=== PATIENT | male | born 1940 | race Caucasian/White ===

== ENCOUNTER 2021-09-10 14:48 | Outpatient (CLI) | payer MEDICARE, SELFPAY ==
--- NOTE | 2021-09-10 | ECHO_ITS ---
Patient Info Name: Ari Araiza Age: 80 years : 1940 Gender: Male Ht: 70 in Wt: 245 lbs BSA: 2.38 m2 HR: 70 bpm BP: 119 / 87 mmHg Heart Rhythm: Atrial Fibrillation Technical Quality: Fair Exam Date: 09/10/2021 3:26 PM Exam Location: [facility] Patient Status: Outpatient Admit Date: 09/10/2021 Staff Ordering Physician: JeraldDominic MD Canopy Stringer: Sara Dixon RDCS Attending Provider: Dea*Dominic MD Exam Type: CA echo dop color flow w con Study Info Indications - A-FIB Complete two-dimensional, color flow and Doppler transthoracic echocardiogram is performed with contrast to opacify the left ventricle and to improve the deliniation of the left ventricle endocardial borders. Contrast/Agitated Saline Contrast/Ag. Saline: Definity Amount: 3.00 ml Administered By: Sara Dixon RDCS Existing IV Access: Yes IV Access Condition: patent with no signs of infiltration New IV Access: Left Summary 1. Normal left ventricular size with mild concentric hypertrophy as well as sigmoid hypertrophy. Good systolic function of all segments with ejection fraction 63%. Diastolic dysfunction is present. No evidence of left ventricular outflow tract obstruction. 2. Left atrial chamber dimension is moderately enlarged. 3. There is mild tricuspid valve regurgitation. 4. No pulmonary hypertension, estimated pulmonary arterial systolic pressure is 34 mmHg. 5. Atrial fibrillation. Left Ventricle Left ventricular chamber dimension is normal. Left ventricular systolic function is normal, estimated at 60-65%. There is mildly increased left ventricular wall thickness. Left ventricular septal wall motion is normal. The left ventricular diastolic function is abnormal. Right Ventricle Right ventricular chamber dimension is normal. Right ventricular systolic function is normal. Left Atria Left atrial chamber dimension is moderately enlarged. Right Atria Right atrial chamber dimension is normal. Aortic Valve The aortic valve is trileaflet. There is mild aortic valve sclerosis. There is no aortic valve stenosis. There is no aortic valve regurgitation. Pulmonic Valve The pulmonic valve is normal. There is no pulmonic valve stenosis. There is no pulmonic regurgitation. Mitral Valve The mitral valve has normal leaflets. There is no mitral valve stenosis. There is trace mitral valve regurgitation. Tricuspid Valve The tricuspid valve leaflets are normal. There is no significant tricuspid valve stenosis. There is mild tricuspid valve regurgitation. No pulmonary hypertension, estimated pulmonary arterial systolic pressure is 34 mmHg. Pericardium/Pleural The pericardium appears normal. There is no pericardial effusion. Inferior Vena Cava Normal inferior vena cava with >50% collapse upon inspiration consistent with Empty right atrial pressure, 10 mmHg. Aorta The aortic root size at the sinus of Valsalva is normal. The prox ascending aorta size is normal. Left Ventricular Outflow Tract Name Value Normal LVOT 2D LVOT Diameter 2.02 cm LVOT Doppler
[2021-09-10] MEDS: PERFLUTREN LIPID MICROSPHERES 1.5 ML VIAL DILUTED TO 10 ML TOTAL VOLUME IV PUSH (14:45)
== END 2021-09-10 14:49 | disposition home or self-care (01) ==
LOC: ANHCARD 14:50
PROVIDERS: PCP Internal Medicine; Visit Provider Internal Medicine
DX: I48.91 Unspecified atrial fibrillation (principal)
CPT/HCPCS: C8929; Q9957

== ENCOUNTER 2024-07-26 08:05 | Outpatient (CLI) | payer MEDICARE, SELFPAY ==
--- OUTSIDE RECORDS SUMMARY | 2024-07-26 08:11 | XMS_ITS | Data Portability ---
Author Organization [place] [employer], Main Office Address [address] [place] [address] Assessment Encounter Date Assessment Date Assessment LastModified by Organization Details LastModified Time 08/05/2022 08/05/2022 Medications refilled diagnosis discussed blood work ordered targets for pressure A1c and LDL discussed follow-up in 6 months Not available 08/09/2022 15:57:29 02/10/2023 02/10/2023 Continue current therapy diagnosis discussed he will follow-up in 4-6 [email or web address] Not available 02/10/2023 22:59:06 Plan of Treatment Reminders Order Date Submit Date Provider Last Modified By Organization Details Last Modified Time Details Appointments None recorded. Lab PSA, total, serum or plasma 2022 023 [facility] (Lab), [address] [place], [address], 3 14:17:05 glycohemogl obin, total, blood 2022 023 [facility] (Lab), [address] [place], [address], 3 17:33:43 CBC w/ auto diff 2022 023 [facility] (Lab), [address] [place], [address], 3 13:52:23 lipid panel, serum 2022 023 [facility] (Lab), [address] [place], [address], 3 13:49:49 CMP, serum or plasma 2022 023 [facility] (Lab), [address] [place], [address], 3 13:49:54 glycohemogl obin, total, blood 2022 023 [facility] (Lab), [address] [place], [address], 3 14:28:34 albumin/cre atinine, mass ratio, urine 2022 023 [facility] (Lab), [address] [place], [address], 3 09:43:42 CBC w/ auto diff 2022 023 [facility] (Lab), [address] [place], [address], 3 13:10:25 lipid panel, serum 2022 023 [facility] (Lab), [address] [place], [address], 3 15:47:13 CMP, serum or plasma 2022 023 [facility] (Lab), [address] [place], [address], 3 15:47:15 Referral None recorded. Procedures None recorded. Surgeries None recorded. Imaging None recorded. Medication Orders simvastatin 40 mg tablet 2022 023 [facility] #[id number], [address], [id number], 3 15:46:02 Farxiga 10 mg tablet 2022 023 [facility] #64256, [address] [place] [address], [id number], 3 15:46:02 glipizide 5 mg tablet 2022 023 [id number] [facility] #36483, [address] [place] [address], [id number], 3 15:46:02 metoprolol tartrate 50 mg tablet 2022 023 [facility] #38013, [address] [place] [address], [id number], 3 15:46:02 Pradaxa 150 mg capsule 2022 023 [facility] #52173, [address] [place] [address], [id number], 3 15:46:02 valsartan 160 mg-hydrochl orothiazide 12.5 mg tablet 2022 023 [email or web address] [facility] #20678, [address] [place] [address], [id number], 3 15:46:02 Patient TargetsNo targets recorded. Patient InstructionsNo instructions recorded. Reason for Referral None Reported. Results Created Date Observation Date Name Description Value Unit Range Abnormal Flag Note LastModifiedBy Organization Detail LastModifiedTime 12/11/19 22 12/10/2021 HEMOG LOBIN A1C HA1C 6.2 % 4.0-6. 0 high Diabe beth Scree bev Crite woody: <5.7% Consi stent with absen ce of diabe beth 5.7-6 .4% Consi stent with incre ased risk for diabe beth (pred iabet es) >OR=6 .5% Consi stent with diabe beth REFER ENCE: Diabe beth Care 2016, 39(Castellano ppl.1 ):s13 -s22 Not Available [facility] (Lab) [address] [place], [address], 12/10/2021 21:30:05 12/11/19 22 12/10/2021 PSA SCREE N PSA medicare screen 3.45 NG/mL 0.00-4 .00 Not Available [facility] (Lab) [address] [place], [address], 12/10/2021 20:31:46 12/11/19 22 12/10/2021 LIPID PANEL cholesterol 162 mg/dL 140-19 9 [facility] L[facility] NSUS RECOM MENDA TION FOR THIAGO STERO L: ADULT CHILD LOW RISK: <200 <170 BORDE RLINE : <200- 239 ----- HIGH RISK: >240 >200 Not Available [facility] (Lab) [address] [place], [address], 12/10/2021 20:15:10 12/11/19 22 12/10/2021 LIPID PANEL triglyceride s 94 mg/dL 0-150 NIH LILIAN NSUS REPOR T RECOM MENDA TION FOR TRIGL YCERI PEG: ADULT CHILD LOW RISK: <150 ----- BODER LINE: 150-1 99 ----- HIGH RISK: >200 ----- Not Available [facility] (Lab) [address] [place], [address], 12/10/2021 20:15:10 12/11/19 22 12/10/2021 LIPID PANEL HDL cholesterol 65 mg/dL 40- Not Available [facility] (Lab) [address] [place], [address], 12/10/2021 20:15:10 12/11/19 22 12/10/2021 LIPID PANEL LDL cholesterol, calculated 78 mg/dL 0-130 NIH LILIAN NSUS REPOR T RECOM MENDA TIONS FOR LDL: ADULT CHILD LOW RISK <130 <110 (OPTI MAL LDL) <100 ----- BORDE RLINE : 130-1 59 ----- HIGH RISK: >160 >130 A TRIGL YCERI DE RESUL T >400 INVAL IDATE S THE CALCU LATIO N FOR LDL FRACT IONAT ION - THE LDL RESUL T WILL NOT BE REPOR TERRI. Not Available [facility] (Lab) [address] [place], [address], 12/10/2021 20:15:10 12/11/19 22 12/10/2021 COMPR EHENS DANIKA METAB OLIC PANEL sodium 135 mmol/ L 137-14 5 low Not Available [facility] (Lab) [address] [place], [address], 12/10/2021 20:15:05 12/11/19 22 12/10/2021 COMPR EHENS DANIKA METAB OLIC PANEL potassium 4.8 mmol/ L 3.5-5. 1 Not Available [facility] (Lab) [address] [place], [address], 12/10/2021 20:15:05 12/11/19 22 12/10/2021 COMPR EHENS DANIKA METAB OLIC PANEL chloride 103 mmol/ L 98-107 Not Available [facility] (Lab) [address] [place], [address], 12/10/2021 20:15:05 12/11/19 22 12/10/2021 COMPR EHENS DANIKA METAB OLIC PANEL carbon dioxide 22 mmol/ L 22-30 Not Available [facility] (Lab) [address] [place], [address], 12/10/2021 20:15:05 12/11/19 22 12/10/2021 COMPR EHENS DANIKA METAB OLIC PANEL anion gap 14.8 mmol/ L 14-22 Not Available [facility] (Lab) [address] [place], [address], 12/10/2021 20:15:05 12/11/19 22 12/10/2021 COMPR EHENS DANIKA METAB OLIC PANEL glucose 129 mg/dL 70-99 high Not Available [facility] (Lab) [address] [place], [address], 12/10/2021 20:15:05 12/11/19 22 12/10/2021 COMPR EHENS DANIKA METAB OLIC PANEL BUN 30 mg/dL 8-19 high Not Available [facility] (Lab) [address] [place], [address], 12/10/2021 20:15:05 12/11/19 22 12/10/2021 COMPR EHENS DANIKA METAB OLIC PANEL creatinine 1.32 mg/dL 0.66-1 .25 high Not Available [facility] (Lab[facility] [address] [facility] [place], [address], 12/10/2021 20:15:05 12/11/19 22 12/10/2021 COMPR EHENS DANIKA METAB OLIC PANEL GFR 52 Refer ence Range : [place] ge GFR Healt hy Adult : >60 mL/mi n/1.7 3 m2 Chron ic Kidne y Disea se: 15-60 mL/mi n/1.7 3 m2 Kidne y Failu re: <15/m L/min /1.73 m2 www.n iddk. nih.g ov The MDRD study equat ion has not been valid ated in child madisyn <18 years of age; pregn ant women ; the elder ly >85 years of age; or in some racia l or ethni c subgr oups, such as [facility] nics. Outsi de the valid ated baldo eters , estim ated GFR is less accur ate, requi ring clini jared judgm ent on a case- by-ca se basis . Clini jared inter preta tion for other races and ages must be made by the clini lisa. The MDRD study equat ion has not been valid ated for the evalu ation of serum creat inine relat ed to nutri amada l statu s or medic ation usage . For perso ns <18 years of age, a pedia tric GFR calcu lator is avail able on the [facility] websi te: https :[email or web address] [email or web address] rg/pr ofess ional s/kdo qi/gf r_cal culat or Not Available [facility] (Lab) [address] [place], [address], 12/10/2021 20:15:05 12/11/19 22 12/10/2021 COMPR EHENS DANIKA METAB OLIC PANEL alkaline phosphatase 63 U/L 38-126 Not Available [facility] (Lab) [address] [place], [address], 12/10/2021 20:15:05 12/11/19 22 12/10/2021 COMPR EHENS DANIKA METAB OLIC PANEL alanine aminotransfe rase 30 U/L 0-50 Not Available [facility] (Lab) [address] [place], [address], 12/10/2021 20:15:05 12/11/19 22 12/10/2021 COMPR EHENS DANIKA METAB OLIC PANEL aspartate aminotransfe rase 40 U/L 15-46 Not Available [facility] (Lab) [address] [place], [address], 12/10/2021 20:15:05 12/11/19 22 12/10/2021 COMPR EHENS DANIKA METAB OLIC PANEL bilirubin, total 1.30 mg/dL 0.20-1 .30 Not Available [facility] (Lab) [address] [place], [address], 12/10/2021 20:15:05 12/11/19 22 12/10/2021 COMPR EHENS DANIKA METAB OLIC PANEL calcium 9.9 mg/dL 8.4-10 .2 Not Available [facility] (Lab) [address] [place], [address], 12/10/2021 20:15:05 12/11/19 22 12/10/2021 COMPR EHENS DANIKA METAB OLIC PANEL total protein 7.5 g/dL 6.3-8. 2 Not Available [facility] (Lab) [address] [place], [address], 12/10/2021 20:15:05 12/11/19 22 12/10/2021 COMPR EHENS DANIKA METAB OLIC PANEL albumin 4.8 g/dL 3.0-4. 4 high Not Available [facility] (Lab) [address] [place], [address], 12/10/2021 20:15:05 12/11/19 22 12/10/2021 COMPR EHENS DANIKA METAB OLIC PANEL globulin 2.7 g/dL 2.6-4. 2 Not Available [facility] (Lab) [address] [place], [address], 12/10/2021 20:15:05 12/11/19 22 12/10/2021 COMPR EHENS DANIKA METAB OLIC PANEL A/G ratio 1.8 ratio 1.0-2. 0 Not Available [facility] (Lab) [address] [place], [address], 12/10/2021 20:15:05 08/06/19 23 08/05/2022 CBC/C OMPLE TE BLD COUNT W/DIF F white blood cells 7.6 x10'3 /uL 4.2-10 .8 Not Available [facility] (Lab) [address] [place], [address], 08/05/2022 13:10:25 08/06/19 23 08/05/2022 CBC/C OMPLE TE BLD COUNT W/DIF F red blood cells 4.86 x10'6 /uL 4.10-5 .80 Not Available [facility] (Lab) [address] [place], [address], 08/05/2022 13:10:25 08/06/19 23 08/05/2022 CBC/C OMPLE TE BLD COUNT W/DIF F hemoglobin 15.5 g/dL 13.2-1 7.0 Not Available [facility] (Lab) [address] [place], [address], 08/05/2022 13:10:25 08/06/19 23 08/05/2022 CBC/C OMPLE TE BLD COUNT W/DIF F hematocrit 47.5 % 39.3-5 0.0 Not Available [facility] (Lab) [address] [place], [address], 08/05/2022 13:10:25 08/06/19 23 08/05/2022 CBC/C OMPLE TE BLD COUNT W/DIF F mean red cell volume 97.7 fL 80.0-9 7.0 high Not Available [facility] (Lab) [address] [place], [address], 08/05/2022 13:10:25 08/06/19 23 08/05/2022 CBC/C OMPLE TE BLD COUNT W/DIF F mean red cell hemoglobin 31.9 pg 27.0-3 3.0 Not Available [facility] (Lab) [address] [place], [address], 08/05/2022 13:10:25 08/06/19 23 08/05/2022 CBC/C OMPLE TE BLD COUNT W/DIF F mean RBC HGB concentratio n 32.6 g/dL 31.0-3 6.0 Not Available [facility] (Lab) [address] [place], [address], 08/05/2022 13:10:25 08/06/19 23 08/05/2022 CBC/C OMPLE TE BLD COUNT W/DIF F red cell distribution width 12.7 % 11.8-1 5.5 Not Available [facility] (Lab) [address] [place], [address], 08/05/2022 13:10:25 08/06/19 23 08/05/2022 CBC/C OMPLE TE BLD COUNT W/DIF F platelets 180 x10'3 /uL 150-40 0 Not Available [facility] (Lab) [address] [place], [address], 08/05/2022 13:10:25 08/06/19 23 08/05/2022 CBC/C OMPLE TE BLD COUNT W/DIF F mean platelet volume 12.5 fL 9.0-12 .4 high Not Available [facility] (Lab) [address] [place], [address], 08/05/2022 13:10:25 08/06/1908/05/2022 CBC/C OMPLE TE BLD COUNT W/DIF F neutrophils 67.5 % 39.0-7 2.0 Not Available [facility] (Lab) [address] [place], [address], 08/05/2022 13:10:25 08/06/19 23 08/05/2022 CBC/C OMPLE TE BLD COUNT W/DIF F lymphocytes 19.4 % 16.0-4 7.0 Not Available [facility] (Lab) [address] [place], [address], 08/05/2022 13:10:25 08/06/1908/05/2022 CBC/C OMPLE TE BLD COUNT W/DIF F monocytes 9.2 % 5.0-12 .0 Not Available [facility] (Lab) [address] [place], [address], 08/05/2022 13:10:25 08/06/1908/05/2022 CBC/C OMPLE TE BLD COUNT W/DIF F eosinophils 2.8 % 1.0-7. 0 Not Available [facility] (Lab) [address] [place], [address], 08/05/2022 13:10:25 08/06/19 23 08/05/2022 CBC/C OMPLE TE BLD COUNT W/DIF F basophils 0.8 % 0.0-2. 0 Not Available [facility] (Lab) [address] [place], [address], 08/05/2022 13:10:25 08/06/19 23 08/05/2022 CBC/C OMPLE TE BLD COUNT W/DIF F immature granulocytes 0.3 % 0.00-0 .50 Not Available [facility] (Lab) [address] [place], [address], 08/05/2022 13:10:25 08/06/1908/05/2022 CBC/C OMPLE TE BLD COUNT W/DIF F neutrophils, absolute count 5.13 x10'3 /uL 1.5-8. 0 Not Available [facility] (Lab) [address] [place], [address], 08/05/2022 13:10:25 08/06/19 23 08/05/2022 CBC/C OMPLE TE BLD COUNT W/DIF F lymphocytes, absolute count 1.47 x10'3 /uL 1.07-3 .43 Not Available [facility] (Lab) [address] [place], [address], 08/05/2022 13:10:25 08/06/19 23 08/05/2022 CBC/C OMPLE TE BLD COUNT W/DIF F monocytes, absolute count 0.70 x10'3 /uL 0.29-0 .99 Not Available [facility] (Lab) [address] [place], [address], 08/05/2022 13:10:25 08/06/1908/05/2022 CBC/C OMPLE TE BLD COUNT W/DIF F eosinophils, absolute count 0.21 x10'3 /uL 0.02-0 .53 Not Available [facility] (Lab) [address] [place], [address], 08/05/2022 13:10:25 08/06/1905 0808/05/2022 CBC/C OMPLE TE BLD COUNT W/DIF F basophils, absolute count 0.06 x10'3 /uL 0.01-0 .08 Not Available [facility] (Lab) [address] [place], [address], 08/05/2022 13:10:25 08/06/19 23 08/05/2022 CBC/C OMPLE TE BLD COUNT W/DIF F immature granulocytes ,absolute 0.02 x10'3 /uL 0.00-0 .05 Not Available [facility] (Lab) [address] [place], [address], 08/05/2022 13:10:25 08/06/19 23 08/05/2022 CBC/C OMPLE TE BLD COUNT W/DIF F nucleated red blood cells 0.0 % -0 Not Available [facility] (Lab) [address] [place], [address], 08/05/2022 13:10:25 08/06/19 23 08/05/2022 CBC/C OMPLE TE BLD COUNT W/DIF F NRBC# 0.00 x10'3 /uL Not Available [facility] (Lab) [address] [place], [address], 08/05/2022 13:10:25 08/06/19 23 08/05/2022 MICRO ALBUM N RNDM W/CRE AT RATIO ur creat 82.83 mg/dL REFER ENCE RANGE NOT ESTAB LISHE D FOR RANDO M URINE CREAT ININE Not Available [facility] (Lab) [address] [place], [address], 08/05/2022 14:07:37 08/06/19 23 08/05/2022 MICRO ALBUM N RNDM W/CRE AT RATIO microalbumin , urine 9.0 mg/L 0.0-16 .6 Not Available [facility] (Lab) [address] [place], [address], 08/05/2022 14:07:37 08/06/19 23 08/05/2022 MICRO ALBUM N RNDM W/CRE AT RATIO microalbumin /creatinine ratio 11 mcg/m g 0-29 THE [facility] CAN DIABE BETH ASS[facility] IATIO N DEFIN ES ABNOR MALIT IES IN ALBUM IN EXCRE TION FOLLO WS: CATEG ORY RESUL T (MCG/ MG CREAT ININE ) JULIO CESAR L <30 MICRO ALBUM INURI A 30-29 9 CLINI JARED ALBUM INURI A > OR = 300 THE ADA RECOM MENDS THAT 2 OF 2 SPECI MENS COLLE CTED WITHI N A 3- TO 6-MON TH PERIO D BE ABNOR MAL BEFOR E CONSI LILIANE G A PATIE NT TO HAVE CROSS ED ONE OF THESE DIAGN OSTIC THRES HOLDS . REFER ENCE: DIABE BETH CARE, VOL. 26: S94-S , 2002 Not Available [facility] (Lab) [address] [place], [address], 08/05/2022 14:07:37 08/06/19 23 08/05/2022 HEMOG LOBIN A1C HA1C 6.5 % 4.0-6. 0 high Diabe beth Scree bev Crite woody: <5.7% Consi stent with absen ce of diabe beth 5.7-6 .4% Consi stent with incre ased risk for diabe beth (pred iabet es) >OR=6 .5% Consi stent with diabe beth REFER ENCE: Diabe beth Care 2016, 39(Castellano ppl.1 ):s13 -s22 Not Available [facility] (Lab) [address] [place], [address], 08/05/2022 14:28:34 08/06/1908/05/2022 LIPID PANEL cholesterol 153 mg/dL 140-19 9 NIH LILIAN NSUS RECOM MENDA TION FOR THIAGO STERO L: ADULT CHILD LOW RISK: <200 <170 BORDE RLINE : <200- 239 ----- HIGH RISK: >240 >200 Not Available [facility] (Lab) [address] [place], [address], 08/05/2022 15:47:12 08/06/1908/05/2022 LIPID PANEL triglyceride s 90 mg/dL 0-150 NIH LILIAN NSUS REPOR T RECOM MENDA TION FOR TRIGL YCERI PEG: ADULT CHILD LOW RISK: <150 ----- BODER LINE: 150-1 99 ----- HIGH RISK: >200 ----- Not Available [facility] (Lab) [address] [place], [address], 08/05/2022 15:47:12 08/06/1908/05/2022 LIPID PANEL HDL cholesterol 60 mg/dL 40- Not Available [facility] (Lab) [address] [place], [address], 08/05/2022 15:47:12 08/06/1908/05/2022 LIPID PANEL LDL cholesterol, calculated 75 mg/dL 0-130 NIH LILIAN NSUS REPOR T RECOM MENDA TIONS FOR LDL: ADULT CHILD LOW RISK <130 <110 (OPTI MAL LDL) <100 ----- JENSEN RLINE : 130-1 59 ----- HIGH RISK: >160 >130 A TRIGL YCERI DE RESUL T >400 INVAL IDATE S THE CALCU LATIO N FOR LDL FRACT IONAT ION - THE LDL RESUL T WILL NOT BE REPOR TERRI. Not Available [facility] (Lab) [address] [place], [address], 08/05/2022 15:47:12 08/06/19 23 08/05/2022 COMPR EHENS DANIKA METAB OLIC PANEL sodium 140 mmol/ L 137-14 5 Not Available [facility] (Lab) [address] [place], [address], 08/05/2022 15:47:26 08/06/19 23 08/05/2022 COMPR EHENS DANIKA METAB OLIC PANEL potassium 5.2 mmol/ L 3.5-5. 1 high Not Available [facility] (Lab) [address] [place], [address], 08/05/2022 15:47:26 08/06/1908/05/2022 COMPR EHENS DANIKA METAB OLIC PANEL chloride 102 mmol/ L 98-107 Not Available [facility] (Lab) [address] [facility] [place], [address], 08/05/2022 15:47:26 08/06/19 23 08/05/2022 COMPR EHENS DANIKA METAB OLIC PANEL carbon dioxide 27 mmol/ L 22-30 Not Available [facility] (Lab) [address] [place], [address], 08/05/2022 15:47:26 08/06/19 23 08/05/2022 COMPR EHENS DANIKA METAB OLIC PANEL anion gap 16.2 mmol/ L 14-22 Not Available [facility] (Lab) [address] [place], [address], 08/05/2022 15:47:26 08/06/19 23 08/05/2022 COMPR EHENS DANIKA METAB OLIC PANEL glucose 146 mg/dL 70-99 high Not Available [facility] (Lab) [address] [place], [address], 08/05/2022 15:47:26 08/06/1908/05/2022 COMPR EHENS DANIKA METAB OLIC PANEL BUN 23 mg/dL 8-19 high Not Available [facility] (Lab) [address] [place], [address], 08/05/2022 15:47:26 08/06/19 23 08/05/2022 COMPR EHENS DANIKA METAB OLIC PANEL creatinine 1.21 mg/dL 0.66-1 .25 Not Available [facility] (Lab) [address] [place], [address], 08/05/2022 15:47:26 08/06/1908/05/2022 COMPR EHENS DANIKA METAB OLIC PANEL GFR 57 Refer ence Range : [place] ge GFR Healt hy Adult : >60 mL/mi n/1.7 3 m2 Chron ic Kidne y Disea se: 15-60 mL/mi n/1.7 3 m2 Kidne y Failu re: <15/m L/min /1.73 m2 www.n iddk. nih.g ov The MDRD study equat ion has not been valid ated in child madisyn <18 years of age; pregn ant women ; the elder ly >85 years of age; or in some racia l or ethni c subgr oups, such as Hispa nics. Outsi de the valid ated baldo eters , estim ated GFR is less accur ate, requi ring clini jared judgm ent on a case- by-ca se basis . Clini jared inter preta tion for other races and ages must be made by the clini lisa. The MDRD study equat ion has not been valid ated for the evalu ation of serum creat inine relat ed to nutri amada l statu s or medic ation usage . For perso ns <18 years of age, a pedia tric GFR calcu lator is avail able on the [facility] websi te: https :[email or web address] garcia/pr valdez grossal s/kdo qi/gf r_cal culat or Not Available [facility] (Lab) [address] [place], [address], 08/05/2022 15:47:26 08/06/1908/05/2022 COMPR EHENS DANIKA METAB OLIC PANEL alkaline phosphatase 60 U/L 38-126 Not Available [facility] (Lab) [address] [place], [address], 08/05/2022 15:47:26 08/06/1908/05/2022 COMPR EHENS DANIKA METAB OLIC PANEL alanine aminotransfe rase 35 U/L 0-50 Not Available [facility] (Lab) [address] [place], [address], 08/05/2022 15:47:26 08/06/19 23 08/05/2022 COMPR EHENS DANIKA METAB OLIC PANEL aspartate aminotransfe rase 42 U/L 15-46 Not Available [facility] (Lab) [address] [place], [address], 08/05/2022 15:47:26 08/06/19 23 08/05/2022 COMPR EHENS DANIKA METAB OLIC PANEL bilirubin, total 1.30 mg/dL 0.20-1 .30 Not Available [facility] (Lab) [address] [place], [address], 08/05/2022 15:47:26 08/06/19 23 08/05/2022 COMPR EHENS DANIKA METAB OLIC PANEL calcium 9.4 mg/dL 8.4-10 .2 Not Available [facility] (Lab) [address] [place], [address], 08/05/2022 15:47:26 08/06/19 23 08/05/2022 COMPR EHENS DANIKA METAB OLIC PANEL total protein 7.4 g/dL 6.3-8. 2 Not Available [facility] (Lab) [address] [place], [address], 08/05/2022 15:47:26 08/06/19 23 08/05/2022 COMPR EHENS DANIKA METAB OLIC PANEL albumin 4.3 g/dL 3.0-4. 4 Not Available [facility] (Lab) [address] [place], [address], 08/05/2022 15:47:26 08/06/19 23 08/05/2022 COMPR EHENS DANIKA METAB OLIC PANEL globulin 3.1 g/dL 2.6-4. 2 Not Available [facility] (Lab) [address] [place], [address], 08/05/2022 15:47:26 08/06/19 23 08/05/2022 COMPR EHENS DANIKA METAB OLIC PANEL A/G ratio 1.4 ratio 1.0-2. 0 Not Available [facility] (Lab) [address] [place], [address], 08/05/2022 15:47:26 02/12/20 23 02/11/2023 LIPID PANEL cholesterol 165 mg/dL 140-19 9 NIH LILIAN NSUS RECOM MENDA TION FOR THIAGO STERO L: ADULT CHILD LOW RISK: <200 <170 BORDE RLINE : <200- 239 ----- HIGH RISK: >240 >200 Not Available [facility] (Lab) [address] [place] [address], [address], 02/11/2023 13:49:48 02/12/20 23 02/11/2023 LIPID PANEL triglyceride s 120 mg/dL 0-150 NIH LILIAN NSUS REPOR T RECOM MENDA TION FOR TRIGL YCERI PEG: ADULT CHILD LOW RISK: <150 ----- BODER LINE: 150-1 99 ----- HIGH RISK: >200 ----- Not Available [facility] (Lab) [address] [place] [address], [address], 02/11/2023 13:49:48 02/12/20 23 02/11/2023 LIPID PANEL HDL cholesterol 53 mg/dL 40- Not Available [facility] (Lab) [address] [place] [address], [address], 02/11/2023 13:49:48 02/12/20 23 02/11/2023 LIPID PANEL LDL cholesterol, calculated 88 mg/dL 0-130 NIH LILIAN NSUS REPOR T RECOM MENDA TIONS FOR LDL: ADULT CHILD LOW RISK <130 <110 (OPTI MAL LDL) <100 ----- BORDE RLINE : 130-1 59 ----- HIGH RISK: >160 >130 A TRIGL YCERI DE RESUL T >400 INVAL IDATE S THE CALCU LATIO N FOR LDL FRACT IONAT ION - THE LDL RESUL T WILL NOT BE REPOR TERRI. Not Available [facility] (Lab) [address] [place], [address], 02/11/2023 13:49:48 02/12/20 23 02/11/2023 COMPR EHENS DANIKA METAB OLIC PANEL sodium 137 mmol/ L 137-14 5 Not Available [facility] (Lab) [address] [place], [address], 02/11/2023 13:49:54 02/12/20 23 02/11/2023 COMPR EHENS DANIKA METAB OLIC PANEL potassium 4.6 mmol/ L 3.5-5. 1 Not Available [facility] (Lab) [address] [place], [address], 02/11/2023 13:49:54 02/12/20 23 02/11/2023 COMPR EHENS DANIKA METAB OLIC PANEL chloride 104 mmol/ L 98-107 Not Available [facility] (Lab) [address] [place], [address], 02/11/2023 13:49:54 02/12/20 23 02/11/2023 COMPR EHENS DANIKA METAB OLIC PANEL carbon dioxide 23 mmol/ L 22-30 Not Available [facility] (Lab) [address] [place], [address], 02/11/2023 13:49:54 02/12/20 23 02/11/2023 COMPR EHENS DANIKA METAB OLIC PANEL anion gap 14.6 mmol/ L 14-22 Not Available [facility] (Lab) [address] [place], [address], 02/11/2023 13:49:54 02/12/20 23 02/11/2023 COMPR EHENS DANIKA METAB OLIC PANEL glucose 174 mg/dL 70-99 high Not Available [facility] (Lab) [address] [place], [address], 02/11/2023 13:49:54 02/12/20 23 02/11/2023 COMPR EHENS DANIKA METAB OLIC PANEL BUN 28 mg/dL 8-19 high Not Available [facility] (Lab) [address] [place], [address], 02/11/2023 13:49:54 02/12/20 23 02/11/2023 COMPR EHENS DANIKA METAB OLIC PANEL creatinine 1.12 mg/dL 0.66-1 .25 Not Available [facility] (Lab) [address] [place], [address], 02/11/2023 13:49:54 02/12/20 23 02/11/2023 COMPR EHENS DANIKA METAB OLIC PANEL GFR >60 Refer ence Range : [place] ge GFR Healt hy Adult : >60 mL/mi n/1.7 3 m2 Chron ic Kidne y Disea se: 15-60 mL/mi n/1.7 3 m2 Kidne y Failu re: <15/m L/min /1.73 m2 [email or web address] The MDRD study equat ion has not been valid ated in child madisyn <18 years of age; pregn ant women ; the elder ly >85 years of age; or in some racia l or ethni c subgr oups, such as ms nics. Outsi de the valid ated baldo eters , estim ated GFR is less accur ate, requi ring clini jared judgm ent on a case- by-ca se basis . Clini jared inter preta tion for other races and ages must be made by the clini lisa. The MDRD study equat ion has not been valid ated for the evalu ation of serum creat inine relat ed to nutri amada l statu s or medic ation usage . For perso ns <18 years of age, a pedia tric GFR calcu lator is avail able on the [facility] websi te: [email or web address] :[email or web address] ofess ional [email or web address] qi/gf r_cal culat or Not Available [facility] (Lab) [address] [place], [address], 02/11/2023 13:49:54 02/12/20 23 02/11/2023 COMPR EHENS DANIKA METAB OLIC PANEL alkaline phosphatase 56 U/L [id number] Not Available [facility] (Lab) [address] [facility] [place], [id number]||2024-07-26 09:29:00|US_ITS|FROHNERTP|Imaging|[id number]|"EXAMINATION: US art doppler w press LE BI DATE: 07/26/2024 09:07 INDICATION: Peripheral arterial occlusive disease TECHNIQUE: Segmental pressures and plethysmographic and Doppler waveforms of the brachial and lower e xtremity arteries were obtained. COMPARISON: None. FINDINGS: Right and left brachial artery pressures of 134 mm Hg and 142 mm Hg, respectively, are concordant (no rmal difference <= 30 mmHg). The left high thigh pressure index is 1.34 (normal > 1.2). The right hig h thigh pressure index is unable be obtained due to inability to occlude the vessels at the right thi gh. The right ankle-brachial index (JUAN MIGUEL) is 1.18 (normal >= 0.9-1). The right great toe-brachial index (T BI) is 0.44 (normal >= 0.6-0.8). The right lower extremity segmental pressure gradients are normal (n ormal gradients <= 20-30 mmHg between adjacent levels on the same leg or the same levels on the two l egs). Arterial waveforms are biphasic or triphasic with brisk systolic upstrokes throughout the arter ies of the right lower limb. The left JUAN MIGUEL is 1.02. The left TBI is 0.65. The left lower extremity segmental pressure gradients are increased between the left dwwiw-hbx-nxus popliteal artery and the left dorsalis pedis artery. Arter ial waveforms are biphasic or triphasic with brisk systolic upstrokes throughout the arteries of the left lower limb. IMPRESSION: 1. Mild arterial occlusive disease with normal bilateral ABIs but mildly decreased right TBI and bord chito left TBI. Reviewed, dictated and finalized at location A. IMPRESSION: 1. Mild arterial occlusive disease with normal bilateral ABIs but mildly decrea sed right TBI and borderline left TBI. "
--- OUTSIDE RECORDS SUMMARY | 2024-07-26 08:11 | XMS_ITS | Clinical Summary ---
Author Organization [facility] Address [address] [place] [address] Care Team Providers Care Economic Development Specialist Name Role Phone Dominic Marques MD Primary Care Provider [phone] [facility],non-owned Affiliates and Associated Physician Practices is amultiple site organization consisting of ambulatory clinics and hospital sitesin [place], [place], [place] and [place]. This disclosure is being madepursuant to the Care Everywhere program and may not contain all information available regarding this patient. Last updated [address].[facility] Allergies Active Allergy Reactions Criticality Noted Date Comments Sitagliptin Wheezing Medium 02/12/2021 Medications * Be aware that medications may not be up to date on this document. Alwaysverify current medications with the patient. metoprolol tartrate IR (Lopressor) 50 MG tablet Take 1 (one) tablet by mouth 2 times daily 01/09/2023 Active glipiZIDE (Glucotrol) 5 MG tablet TAKE 1 TABLET BY MOUTH DAILY IN THE MORNING 01/27/2023 Active simvastatin (Zocor) 40 MG tablet Take 1 (one) tablet by mouth once daily 02/10/2023 Active valsartan-hydro CHLOROthiazide (Diovan HCT) 160-12.5 MG tablet 04/05/2023 Active Farxiga 10 MG tablet Take 1 (one) tablet by mouth once daily 02/13/2023 Active Pradaxa 150 MG capsule Take 1 (one) capsule by mouth 2 times daily 01/15/2023 Active Active Problems Problem Noted Date Diagnosed Date Presence of both artificial knee joints 04/09/19 24 Sleep apnea 08/13/2021 04/09/2023 Overview (04/09/2023): was told mild in shows not to use CPAP Type 2 diabetes mellitus 08/13/2021 024 Social History Tobacco Use Types Packs/Day Years Used Date Smoking Tobacco: Never Smokeless Tobacco: Never Tobacco Cessation:Counseling Given: Not Answered Alcohol Use Standard Drinks/Week Comments Yes 2 (1 standard drink = 0.6 oz pur e alcohol) Sex and Gender Information Value Date Recorded Sex Assigned at Not on file Legal Sex Male 12:14 PM [employer] Gender Identity Not on file Sexual Orientation Not on file Last Filed Vital Signs Vital Sign Reading Time Taken Comments Blood Pressure - - Pulse - - Temperature - - Respiratory Rate - - Oxygen Saturation - - Inhaled Oxygen Concentration - - Weight 113.4 kg (250 lb) 04/07/2023 3:35 PM [employer] Height 177.8 cm (5' 10 ) 04/07/2023 3:35 PM [employer] Body Mass Index 35.87 04/07/2023 3:35 PM [employer] Plan of Treatment Health Maintenance Due Date Last Done Comments DIABETES-SERUM CREATININE 11/17/1957 DTAP/TDAP/TD VACCINES (1 - Tdap) 11/17/1958 PNEUMOCOCCAL VACCINE 50+ (1 of 2 - PCV) 11/17/1958 ZOSTER VACCINE (1 of 2) 11/17/1989 Respiratory Syncytial Virus (RSV) Vaccine Pt: or over 60 yrs (1 - 1-dose 75+ series) 11/17/2014 DIABETES RETINOPATHY SCREENING 04/09/2023 DIABETES-FOOT EXAM WITH MONOFILAMENT 04/09/2023 DIABETES-HGB A1C 04/09/2023 COVID-19 VACCINE (3 - 2023-2 5 season) 2023 12/19/2022, 01/13/2022 DEPRESSION SCREENING 03/16/2024 DIABETES - URINE PROTEIN SCREENING 03/16/2024 MEDICARE AWV CALENDAR YEAR 2024 INFLUENZA VACCINE (Season Ended) 2024 11/28/2021 HEPATITIS B VACCINE Aged Out No longe r eligible based on patient's age to complete this topic HIB VACCINE Aged Out No longer eligi ble based on patient's age to complete this topic HPV VACCINE Aged Out No longer eligi ble based on patient's age to complete this topic MENINGOCOCCAL (Group B) VACCINE SHARED DECISION-MAKING Aged Out No longer eligible based on patient's age to complete this topic MENINGOCOCCAL GROUPS A/C/Y/W VACCINE Aged Out No longer eligible b ased on patient's age to complete this topic Insurance [employer] MEDICARE ADV Care Teams Economic Development Specialist Relationship Specialty Start Date End Date Dominic Marques MD PCP - General Internal Medicine 02/04/23
== END 2024-07-26 08:06 | disposition home or self-care (01) ==
PROVIDERS: PCP Internal Medicine; Visit Provider Podiatrist Foot & Ankle Surgery
DX: I73.9 Peripheral vascular disease, unspecified (principal)
CPT/HCPCS: 93923